=== PATIENT | female | born 1950 | race Caucasian/White ===

== ENCOUNTER 2020-05-25 09:44 | Day surgery (SDC) | payer MEDICARE ==
[2020-05-24 10:07] VITALS: BMI 29.0
[2020-05-25] MEDS ORDERED: AFRIN NASAL MIST 15 ML BOT ONE ×2 (10:33→10:43)
[2020-05-25] MEDS ORDERED: Lidocaine 1% w/Epinephrine 1:100K 20 ML VIAL ONE (10:33)
[2020-05-25 10:52] LABS: Hemoglobin 14.4 g/dL (12.0-16.0)
[2020-05-25] MEDS ORDERED: Fentanyl 100 MCG/2 ML VIAL ONE ×3 (10:56→13:11)
[2020-05-25 11:01] LABS: Anion Gap 15 mmol/L (10-20); BUN (Urea Nitrogen) 19 mg/dL (9.8-20.1); Calc. Creatinine Clearance 93 mL/min (70-130); Calcium 10.3 mg/dL (7.8-10.44); Carbon Dioxide 21 mmol/L (23-31); Chloride 107 mmol/L (98-107); Estimated GFR-MDRD 75; Glucose 93 mg/dL (80-115); Potassium 4.9 mmol/L (3.5-5.1); Sodium 138 mmol/L (136-145)
[2020-05-25] MEDS ORDERED: Succinylcholine Chloride 20 MG/ML 10 ml SYRINGE FS ONE (11:15)
[2020-05-25] MEDS ORDERED: Dexamethasone 20 MG/5 ML VIAL ONE (11:15)
[2020-05-25] MEDS ORDERED: Ondansetron PF 4 MG/2 ML Vial ONE (11:15)
[2020-05-25] MEDS ORDERED: Lidocaine 1% PF 5 ML VIAL ONE (11:15)
[2020-05-25] MEDS ORDERED: Rocuronium Bromide 10 MG/ML (10ML VIAL) ONE (11:15)
[2020-05-25] MEDS ORDERED: PROPOFOL 200 MG/20 ML VIAL ONE (11:15)
[2020-05-25] MEDS ORDERED: Lidocaine 2% Jelly 5 ML TUBE ONE (11:38)
--- NOTE | 2020-05-25 11:43 | EKG ---
Test Reason : PREOP Blood Pressure : / mmHG Vent. Rate : 057 BPM Atrial Rate : 057 BPM P-R Int : 148 ms QRS Dur : 082 ms QT Int : 410 ms P-R-T Axes : 064 002 039 degrees QTc Int : [address] abnormality, possible digitalis effect Abnormal ECG No previous ECGs available Confirmed by MOON WARD M.D. ([id number]) on 05/25/2020 11:43:00 AM Referred By: AIDAN Confirmed By:MOON WARD M.D.
[2020-05-25] MEDS ORDERED: Labetalol HCl 100 MG/20 ML VIAL ONE (12:38)
[2020-05-25] MEDS ORDERED: Enalaprilat Dihydrate 1.25 MG/ML VIAL ONE (13:37)
[2020-05-25] MEDS ORDERED: Hydrocodone-Acetamin 15 ML UDCUP ONE (14:50)
--- NOTE | 2020-05-25 21:26 | OP ---
DATE OF PROCEDURE: 05/25/2020 PREOPERATIVE DIAGNOSES: 1. Chronic rhinosinusitis. 2. Nasal polyposis. 3. Bilateral nasal valve collapse. 4. Nasal obstruction. 5. Bilateral inferior turbinate hypertrophy. 6. Right middle turbinate arti bullosa. ESTIMATED BLOOD LOSS: 50 mL. COMPLICATIONS: None. ANESTHESIA: GETA. PROCEDURE PERFORMED: 1. Bilateral endoscopic sinus surgery, total ethmoidectomies, and sphenoidotomies with removal of tissue. 2. Bilateral endoscopic sinus surgery, maxillary antrostomies. 3. Bilateral endoscopic sinus surgery, frontal sinusotomies with removal of tissue. 4. Bilateral inferior turbinate submucosal resection. 5. Bilateral repair of nasal valve collapse. 6. Endoscopic resection of right middle turbinate arti bullosa. DESCRIPTION OF PROCEDURE: The patient was taken to the operating room, placed supine on the table. General endotracheal anesthesia was obtained by the anesthesia staff. Tube was secured in the left lower lip and the patient was placed in the beach chair position. Following this, Afrin pledgets were removed as the patient was prepped and draped for standard nasal procedures. The 0-degree endoscope was then advanced to the nasal cavity. 1% lidocaine with 1:100,000 epinephrine was injected into the inferior turbinates, middle turbinates, and lateral nasal wall bilaterally. A large right middle turbinate arti bullosa deformity was obstructing access to the right middle meatus. A sickle knife was used to make a vertical incision in the right middle turbinate and the lateral wall of the arti bullosa deformity was resected using 0-degree microdebrider and straight Blakesley forceps. Following this, the uncinate process was visualized bilaterally and was anteriorly fractured using a ball-ended probe bilaterally. The uncinate process was then removed using the 0-degree microdebrider and up-biting Blakesley forceps bilaterally. Following this, the natural maxillary sinus ostia were identified with the ball-ended probe and was gently widened using the ball-ended probe, straight Blakesley forceps, and 40-degree microdebrider blade bilaterally. Following this, the ethmoidal bulla was identified and was punctured on its medial and inferior aspect using the 0-degree microdebrider bilaterally. The ground lamella was identified and was punctured into the posterior ethmoidal cells using the 0-degree microdebrider bilaterally. Polypoid tissue and purulent debris were removed from the ethmoidal sinuses bilaterally. The anterior wall of the sphenoid sinus was identified, staying just medial and inferior to the attachment of the superior turbinate to the posterior nasal wall. Staying just medial and inferior to this area, the Pulido tip suction was used to puncture a sphenoid sinus ostia bilaterally. The sphenoid sinus ostia were then widened in a medial and inferior direction using the 0-degree microdebrider bilaterally. Polypoid tissue was removed from the sphenoid sinuses as well as purulence bilaterally. Following this, a 45-degree endoscope and the 40-degree microdebrider blade were used to identify and widen the frontal sinus ostia. The infected debris was removed from the frontal sinus ostia bilaterally using curved suctions and the 40-degree microdebrider blade bilaterally. Following this, the inferior turbinates were punctured on the anterior and inferior aspect using the submucosal microdebrider and submucosal resection was performed of the anterior and inferior portions of the inferior turbinates bilaterally. Following this, the approach to the lateral nasal wall was made with an incision to the nasal mucosa and the periosteum of the nasal bones was gently elevated. A graft was placed overlying the nasal bones bilaterally and supporting the lower lateral cartilages bilaterally. The incision was then closed using a 5-0 chromic gut stitch. Following this, the nasal cavity was irrigated and a NasoPore packing was placed within the middle meatus bilaterally. The patient tolerate the procedure well. Job ID: [id number]
== END 2020-05-25 15:45 | disposition home or self-care (01) ==
LOC: SDC 09:44
PROVIDERS: ATTEND Otolaryngology Plastic Surgery within the Head & Neck
PROC: 09TL0ZZ Resection of Nasal Turbinate, Open Approach (ICD-10-PCS; principal; 2020-05-25)
PROC: 099R8ZZ Drainage of Left Maxillary Sinus, Via Natural or Artificial Opening Endoscopic (ICD-10-PCS; 2020-05-25)
PROC: 099Q8ZZ Drainage of Right Maxillary Sinus, Via Natural or Artificial Opening Endoscopic (ICD-10-PCS; 2020-05-25)
PROC: 09TV8ZZ Resection of Left Ethmoid Sinus, Via Natural or Artificial Opening Endoscopic (ICD-10-PCS; 2020-05-25)
PROC: 09TU8ZZ Resection of Right Ethmoid Sinus, Via Natural or Artificial Opening Endoscopic (ICD-10-PCS; 2020-05-25)
PROC: 09BT8ZZ Excision of Left Frontal Sinus, Via Natural or Artificial Opening Endoscopic (ICD-10-PCS; 2020-05-25)
PROC: 09BW8ZZ Excision of Right Sphenoid Sinus, Via Natural or Artificial Opening Endoscopic (ICD-10-PCS; 2020-05-25)
PROC: 09BX8ZZ Excision of Left Sphenoid Sinus, Via Natural or Artificial Opening Endoscopic (ICD-10-PCS; 2020-05-25)
PROC: 09BS8ZZ Excision of Right Frontal Sinus, Via Natural or Artificial Opening Endoscopic (ICD-10-PCS; 2020-05-25)
PROC: 09QK0ZZ Repair Nasal Mucosa and Soft Tissue, Open Approach (ICD-10-PCS; 2020-05-25)
DX: J32.9 Chronic sinusitis, unspecified (principal); J33.8 Other polyp of sinus; J34.89 Other specified disorders of nose and nasal sinuses; J34.3 Hypertrophy of nasal turbinates; I10 Essential (primary) hypertension; J30.1 Allergic rhinitis due to pollen; J30.81 Allergic rhinitis due to animal (cat) (dog) hair and dander; J30.89 Other allergic rhinitis; Z87.891 Personal history of nicotine dependence; Z79.82 Long term (current) use of aspirin; Z79.899 Other long term (current) drug therapy
CPT/HCPCS: 80048; 85014; 85018; 93005; 93010; J1100; J2405; J2704; J3010